=== PATIENT | female | born 1975 | race African-American/Black ===

== ENCOUNTER 2016-12-13 19:25 | Emergency (ER) | payer OTHER ==
[2016-12-13 19:36] VITALS: BP 122/77; PULSE 72; TEMP 98.1; BMI 35.9
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
== END 2016-12-13 20:49 | disposition home or self-care (01) ==
LOC: FER 19:25
DX: S60.222A Contusion of left hand, initial encounter (principal); V43.52XA Car driver injured in collision with other type car in traffic accident, initial encounter; Y93.89 Activity, other specified; Y92.410 Unspecified street and highway as the place of occurrence of the external cause
CPT/HCPCS: 73130-TC-LT; 99283-25